=== PATIENT | female | born 1930 | race Caucasian/White ===

== ENCOUNTER 2017-06-02 23:11 | Inpatient (IN) | payer MEDICARE, MEDICAID ==
[~2017-06-02] VITALS: Ht 154.9 cm; Wt 86.0 kg
[~2017-06-02 23:11] MED LIST: BACL-141; CALC-15; CARB1TAB9; DOCU-138; ECOTRIN; GABA300C; MVI; NAPR250T; SERT50TA; SIMV40TA2; VIT D
[2017-06-02] MEDS ORDERED: ACETAMINOPHEN 325MG TABLET PO STA (23:34)
[2017-06-02] MEDS ORDERED: METRONIDAZOLE 500 MG PREMIX 100 ML IV ONE (23:45)
[2017-06-02] MEDS ORDERED: LEVOFLOXACIN 750MG PREMIX 150 ML IV ONE (23:45)
[2017-06-02] MEDS ORDERED: SODIUM CHLORIDE 0.9% 1000ML BAG (SEPSIS BOLUS) IV ONE (23:45)
[2017-06-02] MEDS ORDERED: ACETAMINOPHEN 650MG SUPP PR SCH (23:45)
[2017-06-02 23:55] LABS: BG BASE EXCESS -4.1 mmol/L (-2.0-2.0); BG CARBOXYHEMOGLOBIN 0.3 % (0.5-1.5); BG DEOXYHEMOGLOBIN 1.5 % (0.0-5.0); BG FRACTION INSPIRED OXYGEN 28; BG HCO3 ACT 20.1 mmol/L (22.0-26.0); BG METHEMOGLOBIN 0.1 % (0.0-1.5); BG OXYGEN SATURATION 98.5 % (92.0-98.5); BG OXYHEMOGLOBIN 98.1 % (94.0-97.0); BG PCO2 34.3 mmHg (35.0-45.0); BG PH 7.386 (7.350-7.450); BG PO2 131.4 mmHg (75.0-100.0); BG SAMPLE SITE LEFT RADIAL; BG VENT MODE NASAL CANNULA
[2017-06-03 00:26] LABS: CLARITY URINE CLEAR (CLEAR); COLOR URINE YELLOW (YELLOW); GLUCOSE URINE NEGATIVE (NEGATIVE); KETONES URINE NEGATIVE (NEGATIVE); LEUKOCYTE ESTERASE URINE TRACE (NEGATIVE); NITRITE URINE POSITIVE (NEGATIVE); OCCULT BLOOD URINE 1+ (NEGATIVE); PH URINE 6.5 (4.5-8.0); PROTEIN URINE NEGATIVE (NEGATIVE); SPECIFIC GRAVITY URINE 1.013 (1.005-1.030); UROBILINOGEN URINE 0.2 E.U./dL (0.2-1.0)
[2017-06-03 00:59] LABS: *AMPHETAMINES SCREEN URINE NEGATIVE (NEGATIVE); *BARBITURATES SCREEN URINE NEGATIVE (NEGATIVE); *BENZODIAZEPINES SCREEN URINE NEGATIVE (NEGATIVE); *COCAINE SCREEN URINE NEGATIVE (NEGATIVE); CANNABINOID URINE SCREEN NEGATIVE (NEGATIVE); METHADONE URINE SCREEN NEGATIVE (NEGATIVE); OPIATES URINE SCREEN NEGATIVE (NEGATIVE); PHENCYCLIDINE URINE SCREEN NEGATIVE (NEGATIVE)
[2017-06-03 01:13] LABS: BASOPHILS % 0.2 % (0.0-2.0); HEMATOCRIT. 34.3 % (36.0-48.0); HEMOGLOBIN. 11.7 g/dL (12.0-16.0); LYMPHOCYTES % 27.3 % (20.0-50.0); MEAN CORPUSCULAR HEMOGLOBIN 30.2 pg (28.0-32.0); MEAN CORPUSCULAR VOLUME 88.5 fL (81.0-99.0); MEAN PLATELET VOLUME 8.2 fl (7.4-10.4); MONOCYTES % 6.2 % (2.0-8.0); NEUTROPHILS % 65.3 % (40.0-76.0); PLATELET 179 x1000/uL (130-400); RED BLOOD CELL COUNT 3.87 mill/uL (4.2-5.4); RED CELL DISTRIBUTION WIDTH 13.3 % (11.6-14.6)
[2017-06-03 01:19] LABS: PROTHROMBIN TIME 10.4 sec (9.4-11.6)
[2017-06-03] MEDS ORDERED: NITROGLYCERIN OINT 1GM/INCH UDPKT TD SCH (01:28)
[2017-06-03] MEDS ORDERED: ASPIRIN 81MG TABLET PO SCH (01:28)
[2017-06-03] MEDS ORDERED: METHYLPREDNISOLONE SOD SUCC 125 MG/2 ML VIAL IV SCH (01:28)
[2017-06-03] MEDS ORDERED: IPRATROPIUM BROMIDE (0.02%) 0.5MG/2.5ML NEB HHN SCH (01:29)
[2017-06-03] MEDS ORDERED: MAGNESIUM 2 G PREMIX 50 ML IV SCH (01:29)
[2017-06-03] MEDS ORDERED: ALBUTEROL (0.083%) 2.5MG/3ML NEB HHN SCH (01:29)
[2017-06-03 01:30] LABS: CARBON DIOXIDE 26 mEq/L (21-32); CHLORIDE 109 mEq/L (98-107); ETHANOL BLOOD < 10 mg/dL; TROPONIN I < 0.02 ng/mL (0.00-0.04)
[2017-06-03] MEDS ORDERED: DEXT 5%/0.45% NACL 1000ML 1,000 ML IV SCH ×2 (01:57→08:22)
[2017-06-03] MEDS ORDERED: IPRATROPIUM/ALBUTEROL 0.5-3(2.5)MG/3ML NEB INH PRN (02:00)
[2017-06-03] MEDS ORDERED: LEVOFLOXACIN 500MG PREMIX 100 ML IV SCH (02:00)
[2017-06-03] MEDS ORDERED: ACETAMINOPHEN 325MG TABLET PO PRN (02:00)
[2017-06-03] MEDS ORDERED: DIPHENHYDRAMINE 50MG/ML VIAL IV PRN (02:00)
[2017-06-03] MEDS ORDERED: ONDANSETRON HCL 4MG/2ML VIAL IV PRN (02:00)
[2017-06-03 04:00] VITALS: BP 133/56
[2017-06-03] MEDS ORDERED: LOSA50TA20 PO (04:47)
[2017-06-03] MEDS ORDERED: CARB1TAB7 PO (04:47)
[2017-06-03] MEDS ORDERED: CRAN450T10 PO (04:47)
[2017-06-03] MEDS ORDERED: SIMV20TA6 PO (04:47)
[2017-06-03] MEDS ORDERED: ALEN70TA3 PO (04:47)
[2017-06-03] MEDS ORDERED: ASPI-1159 PO (04:47)
[2017-06-03 07:28] VITALS: BP 106/53
[2017-06-03] MEDS ORDERED: FUROSEMIDE 40MG/4ML VIAL IVP NR (09:06)
[2017-06-03 12:11] VITALS: BP 111/64
[2017-06-03] MEDS: CARBIDOPA/LEVODOPA 10/100MG TABLET PO SCH ×2 (14:36→21:42)
[2017-06-03 16:09] VITALS: BP 116/59
[2017-06-03 20:00] VITALS: BP 121/62
[2017-06-04] MEDS: LEVOFLOXACIN 250MG PREMIX 50 ML IV SCH (00:06)
[2017-06-04 08:00] VITALS: BP 105/69
[2017-06-04] MEDS: CARBIDOPA/LEVODOPA 10/100MG TABLET PO SCH ×3 (11:42→21:50)
[2017-06-04] MEDS: POTASSIUM CHLORIDE 10MEQ TABLET SR PO SCH (11:43)
[2017-06-04] MEDS: FUROSEMIDE 40MG/4ML VIAL IVP SCH (11:43)
[2017-06-04 12:00] VITALS: BP 119/56
[2017-06-04 15:28] LABS: CHLORIDE 108 mEq/L (98-107)
[2017-06-04 15:37] LABS: CARBON DIOXIDE 26 mEq/L (21-32)
[2017-06-04 16:00] VITALS: BP 148/84
[2017-06-04 20:00] VITALS: BP 119/66
[2017-06-04 20:07] VITALS: BP 119/66
[2017-06-05] VITALS: BP 127/65
[2017-06-05] MEDS: LEVOFLOXACIN 250MG PREMIX 50 ML IV SCH (00:27)
[2017-06-05 04:00] VITALS: BP 143/66
[2017-06-05] MEDS: CARBIDOPA/LEVODOPA 10/100MG TABLET PO SCH (05:19)
[2017-06-05 08:00] VITALS: BP 127/61
[2017-06-05] MEDS: POTASSIUM CHLORIDE 10MEQ TABLET SR PO SCH (08:30)
[2017-06-05] MEDS: FUROSEMIDE 40MG/4ML VIAL IVP SCH (08:31)
[2017-06-05 10:52] VITALS: BP 122/76
[2017-06-05 12:00] VITALS: BP 124/61
== END 2017-06-05 12:40 | DRG 189 ==
LOC: ER 23:11 → 8WST 06-03 01:11 → ENRESERV 06-03 04:59
PROVIDERS: ADMIT Internal Medicine; ATTEND Internal Medicine
DX: J96.01 Acute respiratory failure with hypoxia (principal); G93.40 Encephalopathy, unspecified; I50.43 Acute on chronic combined systolic (congestive) and diastolic (congestive) heart failure; J44.1 Chronic obstructive pulmonary disease with (acute) exacerbation; J98.11 Atelectasis; J44.0 Chronic obstructive pulmonary disease with (acute) lower respiratory infection; I11.0 Hypertensive heart disease with heart failure; G20 Parkinson's disease; E11.9 Type 2 diabetes mellitus without complications; F03.90 Unspecified dementia, unspecified severity, without behavioral disturbance, psychotic disturbance, mood disturbance, and anxiety; E66.9 Obesity, unspecified; J20.9 Acute bronchitis, unspecified; E78.00 Pure hypercholesterolemia, unspecified; K57.90 Diverticulosis of intestine, part unspecified, without perforation or abscess without bleeding; M19.90 Unspecified osteoarthritis, unspecified site; Z79.899 Other long term (current) drug therapy; Z90.49 Acquired absence of other specified parts of digestive tract; Z90.710 Acquired absence of both cervix and uterus
CPT/HCPCS: 36415; 36600; 51702; 70450; 71010; 74176; 80048; 80053; 80305; 81001; 82375; 82805; 83605; 83690; 83735; 83880; 84484; 85025; 85610; 87040; 87086; 87804; 93005; 93306; 93970; 94640; 94664; 96365; 96366; 96367; 96368; 96375; 99285; A6261; G0482; J1940; J1956; J2930; J3475; J3490; J7030; J7611; J7620; A4315